=== PATIENT | female | born 1985 | race Caucasian/White ===

== ENCOUNTER → 2019-04-10 | Outpatient (CLI) | payer OTHER ==
--- NOTE | 2019-04-10 12:56 | XR ---
Lumbar spine HISTORY: Back pain 3 views of the lumbar spine No comparisons Lumbar vertebral bodies show preserved height, alignment, and bone mineralization. Disc spaces are ma intained. Mild spondylosis present. Sclerosis of the posterior elements of the lower lumbar spine com patible with facet arthropathy. Probable tubal ligation clips present in the pelvis. IMPRESSION: Lumbar spondylosis. Facet arthropathy.
--- NOTE | 2019-04-10 12:59 | XR ---
EXAMINATION TYPE: XR chest 2V DATE OF EXAM: 04/10/2019 COMPARISON: NONE HISTORY: Cough TECHNIQUE: Frontal and lateral views of the chest are obtained. FINDINGS: There is no focal air space opacity, pleural effusion, or pneumothorax seen. Spinal curva ture noted toward the left. The cardiac silhouette size is within normal limits. The osseous struct ures are intact. IMPRESSION: No acute cardiopulmonary process.
--- NOTE | 2019-04-10 12:59 | XR ---
Thoracic spine HISTORY: Back pain Frontal and lateral views of the thoracic spine on 3 images There is a levoscoliosis centered at approximately T11 corresponding to an angle of approximately 12 degrees. Thoracic vertebral bodies show preserved height, bone mineralization. Disc spaces are mainta ined. IMPRESSION: Scoliosis.
== END | disposition home or self-care (01) ==
LOC: RADXRMAIN 11:09
PROVIDERS: ATTEND Family Medicine
DX: M47.816 Spondylosis without myelopathy or radiculopathy, lumbar region (principal); M46.96 Unspecified inflammatory spondylopathy, lumbar region; M41.84 Other forms of scoliosis, thoracic region; R05 Cough
CPT/HCPCS: 71046; 72072; 72100